=== PATIENT | female | born 1945 | race Caucasian/White ===

== ENCOUNTER 2019-02-09 17:28 | Inpatient (IN) ==
--- NOTE | 2019-02-09 18:14 | Emergency Department Note ---
Disposition Clinical Impression: Frequent falls UTI (urinary tract infection) Qualifiers: Urinary tract infection type: acute cystitis Hematuria presence: without hematuria Qualified Code(s): N30.00 - Acute cystitis without hematuria Disposition: Admitted As Inpatient Condition: Fair Referrals: Rudy Avila MD [Primary Care Provider] - Forms: ED Satisfaction Letter Time of Disposition: 20:44 General Adult HPI - General Chief complaint: ED Neuro Symptoms/Deficit Stated complaint: Fall Time Seen by Provider: 02/09/19 17:39 Source: patient, family Limitations: no limitations Nursing Notes Reviewed: Yes Vital Signs Reviewed: Yes - History of Present Illness HPI Narrative: 73-year-old female who presents the emergency department status post fall. The patient states she was seated and fell backwards injuring her head. Apparently there was blood. She states she had possible loss of consciousness that she had an episode where she murmurs waking up wondering what happened. She denies any prodromal symptoms including chest pain, shortness of breath, dizziness. She denies any current symptoms. She denies any chest pain, shortness of breath, headache, visual changes, numbness, tingling or weakness. Pain Scale: 7 - Related Data Previous Rx's Medication Instructions Recorded cephALEXin [Keflex] 500 mg PO TID 6 Days #18 capsule 02/08/19 Allergies Allergy/AdvReac Type Severity Reaction Status Date / Time Amoxicillin Allergy Hives Verified 02/08/19 19:49 Review of Systems: ROS per history of present illness, all other systems reviewed and negative or normal. All systems ED: reviewed and negative except as stated. Review of Systems: As Per HPI Past Medical History - Past Medical History Medical history: Reports: asthma, COPD, hyperlipidemia, hypertension - Social History Smoking Status: Former smoker Smokeless Tobacco Status: No Alcohol use: Reports: none Drug use: Reports: none Physical Exam General: Conversant. No apparent distress. Follow commands. Appears stated age. Neck: No JVD. Trachea midline. Neck supple. Eyes: PERRL. No scleral icterus. HENT: Normocephalic Moist mucus membranes. Patient has healing right temporal hematoma. There is no bony crepitus or obvious lacerations which are new. Cardiovascular: Regular rate and rhythm. Normal S1 and S2. No murmurs appreciated. Normal capillary refill. Extremities well perfused with 2+ distal pulses bilaterally. No edema. Pulmonary: Normal and equal breath sounds bilaterally, anteriorly and posteriorly. No wheezes, rales, or rhonchi. Not in respiratory distress. Speaks in full sentences. Abdomen: Soft, nondistended, and tontender. No bruits or masses. No guarding. Neuro: Alert and oriented to person, place, and time. CN II-XII tested and grossly intact. No hemineglect. Speech is fluid and without slurring. Sensory: Sensation intact to light touch in all extremities. Motor: Normal tone and bulk. No pronator drift. 5/5 strength in LUE 5/5 strength in RUE 5/5 strength in LLE 5/5 strength in RLE Skin: No rashes noted on visualized skin. Musculoskeletal: No bony abnormalities visualized. Moves all extremities. Psych: Normal mood. Pleasant. Makes appropriate eye contact. - General Limitations: no limitations General appearance: alert, in no apparent distress Course Vital Signs Temperature 98.1 F 02/09/19 17:29 Pulse Rate 86 02/09/19 17:29 Respiratory Rate 16 02/09/19 17:29 Blood Pressure 164/84 02/09/19 17:29 O2 Sat by Pulse Oximetry 99 02/09/19 17:29 Temperature 98.1 F 02/09/19 17:29 Pulse Rate 81 02/09/19 20:12 Respiratory Rate 14 02/09/19 20:12 Blood Pressure 169/79 02/09/19 20:12 O2 Sat by Pulse Oximetry 100 02/09/19 20:12 Oxygen Delivery Oxygen Delivery Room Air Medical Decision Making - [facility] Narrative Medical decision making narrative: 73-year-old female who presents the emergency department status post fall. This was unwitnessed and at home while she was alone. She is not on any blood thinners. She is alert and oriented on exam and her vital signs are stable. She has no neurologic deficits. She does have obvious old healing bruise on her right anabaptist and superficial scrapes on her forehead but no other obvious contusions at this time. The patient was also recently diagnosed with a urinary tract infection yesterday and was given 1 g Rocephin but has not followed up to get her prescription antibiotics as of yet. We did evaluate with CT head and cervical spine which shows no evidence of acute intracranial pathology or fractures. The patient did have laboratory evaluation less than 24 hours ago has had no significant changes since that time. Urine was grossly infected therefore repeated dosing of Rocephin today. Discussed with family patient has had multiple falls and lives alone and they did not therefore do not believe she is safe at home. She was offered admission yesterday but declined area and she is agreeable to this plan today. She will likely require placement. Discussed case with on-call hospitalist Dr. Boucher who agrees with plan for admission and accepts the patient to the inpatient service. Patient agrees with and understands course of treatment plan including plan for admission. All questions answered. - Medical Records Medical records reviewed: Yes I reviewed the patient's medical records. - Lab Data Lab results reviewed: Yes I reviewed the patient's lab results. - Radiology Data Radiology results reviewed: Yes I reviewed the patient's radiology results. Cervical Spine CT 02/09/19 18:10 IMPRESSION: No acute abnormality of the cervical spine. D/ / John Ca MD / John Ca MD Interpreting Provider: John Ca MD Head CT 02/09/19 18:10 IMPRESSION: No acute intracranial abnormality. D/ / Pillo Stark MD / Pillo Stark MD Interpreting Provider: Pillo Stark MD - EKG Data EKG #1 EKG attestation: Yes I reviewed and interpreted this EKG. EKG results narrative: Normal sinus rhythm rate of 82. Normal axis. No acute ischemic ST or T-wave abnormalities. Patient does show evidence of right bundle branch block which is unchanged from prior on 02/08/19.
[2019-02-09] MEDS ORDERED: cefTRIAXone 1,000 MG in Water for inj. (sterile) 10 ML IVP ONE (19:40)
--- NOTE | 2019-02-09 21:07 | Emergency Department Note ---
Disposition Clinical Impression: Frequent falls UTI (urinary tract infection) Qualifiers: Urinary tract infection type: acute cystitis Hematuria presence: without hematuria Qualified Code(s): N30.00 - Acute cystitis without hematuria Disposition: Admitted As Inpatient Condition: Fair Referrals: Rudy Avila MD [Primary Care Provider] - Forms: ED Satisfaction Letter Time of Disposition: 21:07 General Adult HPI - General Chief complaint: ED Neuro Symptoms/Deficit Stated complaint: Fall Time Seen by Provider: 02/09/19 17:39 Source: patient, family Limitations: no limitations - History of Present Illness Pain Scale: 7 - Related Data Previous Rx's Medication Instructions Recorded cephALEXin [Keflex] 500 mg PO TID 6 Days #18 capsule 02/08/19 Allergies Allergy/AdvReac Type Severity Reaction Status Date / Time Amoxicillin Allergy Hives Verified 02/08/19 19:49 Past Medical History - Past Medical History Medical history: Reports: asthma, COPD, hyperlipidemia, hypertension - Social History Smoking Status: Former smoker Smokeless Tobacco Status: No Alcohol use: Reports: none Drug use: Reports: none Physical Exam - General Limitations: no limitations General appearance: alert, in no apparent distress Course Vital Signs Temperature 98.1 F 02/09/19 17:29 Pulse Rate 86 02/09/19 17:29 Respiratory Rate 16 02/09/19 17:29 Blood Pressure 164/84 02/09/19 17:29 O2 Sat by Pulse Oximetry 99 02/09/19 17:29 Temperature 98.1 F 02/09/19 17:29 Pulse Rate 81 02/09/19 20:12 Respiratory Rate 14 02/09/19 20:12 Blood Pressure 169/79 02/09/19 20:12 O2 Sat by Pulse Oximetry 100 02/09/19 20:12 Oxygen Delivery Oxygen Delivery Room Air Attestation Statement - Attestation Attestation: I examined this patient and my medical decision-making was reviewed with the Resident Physician. I agree with the documented findings, disposition and treatment plan as described except to the extent set forth below. Patient exposing multiple falls. Lives at home by herself. Refused admission last night when she was evaluated for multiple falls and diagnosed with UTI. Was given a dose of Rocephin and sent home with antibiotics. Fell again after discharge. The son says that she is having increasing confusion. She seems somewhat confused on my evaluation, although she is oriented. I had a long conversation with the patient and her son. The son does not feel safe with her going home and neither do I. I was able to make the patient understand that it is possible that she will get better and improved to the point it is safe for her to go home with treatment of her UTI, but until that is the case she cannot be home by herself. Hospitalist has accepted for admission. I was present for the residency EKG interpretation.
[2019-02-09 21:12] LABS: Basophils % 0.3 %; Eosinophils % 0.6 %; Hematocrit 39.7 % (35.3-44.9); Hemoglobin 13.2 g/dL (11.5-15.4); Immature Granulocytes % 0.1 % (0-4); Lymphocytes # 1.5 K/mcL (0.6-4.6); Lymphocytes % 21.5 %; Mean Corpuscular HGB Conc 33.2 g/dL (31.6-35.5); Mean Corpuscular Hemoglobin 32.9 pg (28.0-33.3); Mean Platelet Volume 9.7 fL (9.4-12.4); Monocytes # 0.6 K/mcL (0.0-1.3); Neutrophils # 4.8 K/mcL (1.6-8.9); Platelet Count 293 K/mcL (140-400); Red Blood Count 4.01 M/mcL (3.82-4.97); Red Cell Distribution Width 11.9 % (11.5-14.5); Segmented Neutrophils % 69.5 %; White Blood Count 6.8 K/mcL (4.3-11.1)
[2019-02-09 21:31] LABS: BUN/Creatinine Ratio 11 (6-26); Blood Urea Nitrogen 7 mg/dL (8-23); Calcium 9.8 mg/dL (8.6-10.3); Carbon Dioxide 31 mEq/L (23-29); Chloride 101 mEq/L (98-107); Glucose 94 mg/dL (70-105); Osmolality,Calculated 292 (280-300); Potassium 3.2 mEq/L (3.5-5.1); Sodium 142 mEq/L (136-145); eGFR For African Americans > 60 (> 60); eGFR For Non-African Americans > 60 (> 60)
[2019-02-09] MEDS ORDERED: Naloxone 0.4 MG/ML INJ IVP PRN ×2 (22:41→22:55)
[2019-02-09] MEDS ORDERED: Acetaminophen 325 MG TABLET PO PRN (22:55)
[2019-02-09] MEDS: traMADol 50 MG TABLET PO PRN (23:57)
[2019-02-10] MEDS ORDERED: Potassium Chloride Elixir 20 MEQ/15 ML UDC PO ONE (04:03)
--- NOTE | 2019-02-10 04:15 | Internal Med History&Physical ---
Date of Encounter: 02/09/19 Time of Encounter: 22:00 Internal Medicine - H&P: HPI Chief complaint: Frequent falls History of present illness: Ms. Esquivel is a 73 year old female with a past medical history of asthma, COPD, hyperlipidemia and hypertension who presented to the ED after a fall. Patient apparently has had multiple falls. She was seen in the ED yesterday and evaluated for the same and additionally was found to have a urinary tract infection and was given a dose of Rocephin and discharged on antibiotics. Patient at time was offered admission but refused. After she went home, Fall was unwitnessed as patient currently lives at home alone. She apparently was seated and fell backwards injuring her head. Patient is not currently on blood thinners. Son who is in the ED also reports increasing confusion. Her son did not feel patient was safe to go home alone. On arrival patient was afebrile and hemodynamically stable. Laboratory workup was unremarkable including a normal white blood cell count. CT imaging of the head and spine showed no acute abnormality. Patient admitted for further observation and will likely need to have a discussion on placement moving forward. Past Med Surg Social Fam HX - Past Medical History Medical history: asthma, COPD, hyperlipidemia, hypertension Psychiatric history: depression - Past Surgical History Surgical History: cholecystectomy, orthopedic, other Additional surgical history: sinus surgery, toe repair - Social History Smoking Status: Former smoker Smokeless Tobacco Status: No Alcohol use: none Drug use: none - Family History Mother Hx Family Cancer: Yes Father Hx Family Medical Disorders: Yes (alcoholism) Internal Medicine - H&P: Meds Citalopram [CeleXA] 30 mg PO DAILY 02/09/19 [History] Simvastatin [Zocor] 20 mg PO QPM 02/09/19 [History] Albuterol Sulfate [Albuterol Inhaler] 2 puff PO Q4-6H PRN 02/10/19 [History] Budesonide/Formoterol 160/4.5 [Symbicort 160/4.5] 2 puff PO BID PRN 02/10/19 [History] Diclofenac Potassium 50 mg PO DAILY 02/10/19 [History] Losartan/Hydrochlorothiazide [Losartan-Hctz 50-12.5 mg Tab] 1 tab PO DAILY 02/10/19 [History] Verapamil ER (24 HR) [Calan SR] 240 mg PO QAM 02/10/19 [History] Allergy/AdvReac Type Severity Reaction Status Date / Time Amoxicillin Allergy Hives Verified 02/08/19 19:49 All Systems PM: A 10-system review of systems was performed and is negative for pertinent findings except as documented above in the HPI. - Constitutional Constitutional: no chills, no fever(s), no night sweats - EENT Eyes: no change in vision, no discharge, no pain, no photophobia Ears: no ear discharge, no ear pain, no tinnitus Nose, mouth and throat: no dysphagia, no nasal discharge, no neck pain, no sore throat - Cardiovascular Cardiovascular ROS IM: no chest pain, no diaphoresis, no dyspnea, no lightheadedness, no palpitations, no syncope - Respiratory Respiratory: no cough, no dyspnea, no wheezing, no excessive phlegm production - Gastrointestinal Gastrointestinal: no abdominal pain, no diarrhea, no hematemesis, no hematochezia, no melena, no nausea, no vomiting - Genitourinary Genitourinary: no change in urinary stream, no dysuria, no flank pain, no hematuria - Musculoskeletal Musculoskeletal ROS IM: no numbness, no tingling - Integumentary Integumentary IM: no rash, no unusual bruising - Neurological Neurological ROS: no confusion, no convulsions, no focal weakness, no numbness, no tingling, no tremor(s) - Hematologic/Lymphatic Hematologic/Lymphatic: no easy bruising - Constitutional Vitals: Temp Pulse Resp BP Pulse Ox 97.3 F L 80 16 167/91 95 02/10/19 03:48 02/10/19 03:48 02/10/19 03:48 02/10/19 03:48 02/10/19 03:48 Exam: General: Alert and oriented 3 Skin:Normal color, no rash, no lesions. HEENT:EOM, pupils equal, round and reactive. Cardiovascular:Normal S1 & S2, no rubs, murmurs or gallops. No JVD. Pulse regular. Lungs:Normal breath sounds, no wheezes or crackles. Abdomen:Soft, non-tender, no rigidity. Extremities:No deformity, no edema or tenderness, no joint swelling or clubbing. Neurological:Normal cognition and motor skills. Pulses:Carotid and radial pulses normal +2. Rest of the physical exam is non contributory Internal Med - H&P Results - Labs CBC & Chem 7: 02/09/19 20:52 02/10/19 13:06 Labs: Short CBC 02/09/19 Range/Units 20:52 WBC 6.8 (4.3-11.1) K/mcL Hgb 13.2 (11.5-15.4) g/dL Hct 39.7 (35.3-44.9) % Plt Count 293 (140-400) K/mcL Neutrophils # 4.8 (1.6-8.9) K/mcL BMP 02/09/19 20:52 Sodium 142 Potassium 3.2 L Chloride 101 Carbon Dioxide 31 H BUN 7 L Creatinine 0.65 Glucose 94 Calcium 9.8 - Impressions ITS Impressions Cervical Spine CT 02/09/19 18:10 IMPRESSION: No acute abnormality of the cervical spine. D/ / John Ca MD / John Ca MD Interpreting Provider: John Ca MD Head CT 02/09/19 18:10 IMPRESSION: No acute intracranial abnormality. D/ / Pillo Stark MD / Pillo Stark MD Interpreting Provider: Pillo Stark MD - Assessment and Plan (1) Frequent falls Current Visit: Yes Status: Acute Assessment and plan: Patient with history of frequent falls. She currently lives alone and family concerned that given her history of falls would likely need placement at another facility where she can be closely monitored. -Consult to PT and social welfare clerk. -Fall precautions (2) COPD (chronic obstructive pulmonary disease) Current Visit: Yes Status: Acute Assessment and plan: No evidence of an acute exacerbation. Resume home inhalers. Qualifiers: COPD type: unspecified COPD Qualified Code(s): J44.9 - Chronic obstructive pulmonary disease, unspecified (3) Hypertension Current Visit: Yes Status: Acute Assessment and plan: History of hypertension. Blood pressure mildly elevated. We will resume patie nt's home medications. And monitor Qualifiers: Hypertension type: essential hypertension Qualified Code(s): I10 - Essential (primary) hypertension (4) UTI (urinary tract infection) Current Visit: Yes Status: Acute Assessment and plan: Date to antibiotics. We will continue ceftriaxone. Qualifiers: Urinary tract infection type: acute cystitis Hematuria presence: without hematuria Qualified Code(s): N30.00 - Acute cystitis without hematuria (5) DVT prophylaxis Current Visit: Yes Status: Acute Assessment and plan: Intermittent compression devices - Time Spent With Patient Total time spent is greater than 50% in coordination of care (as documented) at patient's floor/unit and/or counseling patient:
--- NOTE | 2019-02-10 08:11 | Event Note ---
Date of Encounter: 02/10/19 Time of Encounter: 08:11 Patient was seen and examined by hospitalist services earlier this morning. Currently patient is alert and appropriate following simple commands. I did discuss treatment plan with the patient and son who is at bedside. Patient does verbalize that she is having right hip pain, has history of hip problems however no surgical intervention in the past. She did have a fall we will x-ray the right hip. PT OT has been consulted and appreciate recommendations she may need placement.
[2019-02-10] MEDS: Verapamil ER (24 HR) 240 MG TABLET.ER PO SCH (09:46)
[2019-02-10] MEDS: traMADol 50 MG TABLET PO PRN ×2 (09:46→17:36)
--- NOTE | 2019-02-10 14:11 | Electrocardiograph Report ---
[place] [id number] Test Date: 2019-02-09 Pat Name: Benny Esquivel Department: [id number] Room: 3B11 Gender: F Proposal Engineer: : [id number] Requested By: Pilar Caputo Order Number: [id number] Reading MD: Sher العراقي Measurements Intervals [place] Rate: 82 P: 52 TX: 170 QRS: -1 QRSD: 132 T: 2 QT: 389 QTc: 455 Interpretive Statements Sinus rhythm Right bundle branch block Electronically Signed On 02-10-2019 14:10:32 EDT by Sher العراقي
[2019-02-10 14:12] LABS: BUN/Creatinine Ratio 13 (6-26); Blood Urea Nitrogen 9 mg/dL (8-23); Calcium 9.3 mg/dL (8.6-10.3); Carbon Dioxide 27 mEq/L (23-29); Chloride 105 mEq/L (98-107); Glucose 111 mg/dL (70-105); Osmolality,Calculated 287 (280-300); Potassium 3.6 mEq/L (3.5-5.1); Sodium 139 mEq/L (136-145); eGFR For African Americans > 60 (> 60); eGFR For Non-African Americans > 60 (> 60)
[2019-02-10] MEDS: cefTRIAXone 1,000 MG in Water for inj. (sterile) 10 ML IVP SCH (17:35)
[2019-02-11] MEDS: traMADol 50 MG TABLET PO PRN ×2 (00:10→20:13)
--- NOTE | 2019-02-11 08:27 | Internal Med Progress Note ---
Hospitalist Progress Note - Encounter Date of Encounter: 02/11/19 Time of Encounter: 08:22 - Subjective Interval History: Patient was seen and examined at bedside I did review x-ray results of right hip she been complaining of right hip pain appears osteoarthritic. Patient has been very by PT and OT recommending inpatient swing rehabilitation patient verbalized understanding. - Exam Vitals: Temp Pulse Resp BP Pulse Ox 97.5 F L 76 16 157/81 96 02/11/19 06:55 02/11/19 06:55 02/11/19 06:55 02/11/19 06:55 02/11/19 06:55 Exam: General: Alert and oriented 3 Skin:Normal color, no rash, no lesions. HEENT:EOM, pupils equal, round and reactive. Cardiovascular:Normal S1 & S2, no rubs, murmurs or gallops. No JVD. Pulse regular. Lungs:Normal breath sounds, no wheezes or crackles. Abdomen:Soft, non-tender, no rigidity. Extremities:No deformity, no edema or tenderness, no joint swelling or clubbing. Neurological:Normal cognition and motor skills. Pulses:Carotid and radial pulses normal +2. Rest of the physical exam is non contributory - Assessment and Plan (1) UTI (urinary tract infection) Current Visit: Yes Status: Acute Assessment and Plan: Date to antibiotics. We will continue ceftriaxone. (2) Frequent falls Current Visit: Yes Status: Acute Assessment and Plan: Patient with history of frequent falls. She currently lives alone and family concerned that given her history of falls would likely need placement at another facility where she can be closely monitored. -Consult to PT and aids social worker. PT OT recommending rehabilitation swing -Fall precautions (3) COPD (chronic obstructive pulmonary disease) Current Visit: Yes Status: Acute Assessment and Plan: No evidence of an acute exacerbation. Resume home inhalers. Oxygen as needed (4) Hypertension Current Visit: Yes Status: Acute Assessment and Plan: History of hypertension. Continue home medications (5) DVT prophylaxis Current Visit: Yes Status: Acute Assessment and Plan: Intermittent compression devices - Time Spent with Patient Total time spent is greater than 50% in coordination of care (as documented) at patient's floor/unit and/or counseling patient: Internal Medicine: Result - Labs CBC & Chem 7: 02/09/19 20:52 02/10/19 13:06 Labs: BMP 02/10/19 13:06 Sodium 139 Potassium 3.6 Chloride 105 Carbon Dioxide 27 BUN 9 Creatinine 0.67 Glucose 111 H Calcium 9.3 - Impressions Impressions Hip X-Ray 02/10/19 10:10 IMPRESSION: 1. Severe osteoarthritis of the right hip. 2. No acute fracture or dislocation of the right hip evident. D/ / 02/10/2019 14:33:06 Vincent Yeager MD / evelio Interpreting Provider: Vincent Yeager MD Consult Discharge Plan - Plan Referrals: Rudy Avila MD [Primary Care Provider] - (Appointment has been requested.) (1) UTI (urinary tract infection) Qualifiers: Urinary tract infection type: acute cystitis Hematuria presence: without hematuria Qualified Code(s): N30.00 - Acute cystitis without hematuria (3) COPD (chronic obstructive pulmonary disease) Qualifiers: COPD type: unspecified COPD Qualified Code(s): J44.9 - Chronic obstructive pulmonary disease, unspecified (4) Hypertension Qualifiers: Hypertension type: essential hypertension Qualified Code(s): I10 - Essential (primary) hypertension
[2019-02-11] MEDS: Verapamil ER (24 HR) 240 MG TABLET.ER PO SCH (09:18)
[2019-02-11] MEDS: cefTRIAXone 1,000 MG in Water for inj. (sterile) 10 ML IVP SCH (17:39)
[2019-02-12] MEDS ORDERED: Budesonide/Formoterol 160/4.5 1 PUFF INH IH PRN (07:44)
--- NOTE | 2019-02-12 07:52 | Internal Med Progress Note ---
Hospitalist Progress Note - Encounter Date of Encounter: 02/12/19 Time of Encounter: 07:47 - Subjective Interval History: Patient was seen and examined at bedside- no changes overnight- Denies any pain or discomfort Discussed plan - awaiting social research assistant recommendations for rehab placment - Exam Vitals: Temp Pulse Resp BP Pulse Ox 98.0 F 71 16 164/84 94 02/12/19 07:33 02/12/19 07:33 02/12/19 07:33 02/12/19 07:33 02/12/19 07:33 Exam: General: Alert and oriented 3 Skin:Normal color, no rash, no lesions. HEENT:EOM, pupils equal, round and reactive. Cardiovascular:Normal S1 & S2, no rubs, murmurs or gallops. No JVD. Pulse regular. Lungs:Normal breath sounds, no wheezes or crackles. Abdomen:Soft, non-tender, no rigidity. Extremities:No deformity, no edema or tenderness, no joint swelling or clubbing. Neurological:Normal cognition and motor skills. Pulses:Carotid and radial pulses normal +2. Rest of the physical exam is non contributory - Assessment and Plan (1) UTI (urinary tract infection) Current Visit: Yes Status: Acute Assessment and Plan: Patient has had 3 days treatments with Rocephin and she has no urinary symptoms and no white count or fever we will discontinue Rocephin this time (2) Frequent falls Current Visit: Yes Status: Acute Assessment and Plan: Patient with history of frequent falls. She currently lives alone and family concerned that given her history of falls would likely need placement at another facility where she can be closely monitored. -Consult to PT and social research assistant. PT OT recommending rehabilitation swing- social research assistant consulted and working on placement -Fall precautions (3) COPD (chronic obstructive pulmonary disease) Current Visit: Yes Status: Acute Assessment and Plan: No evidence of an acute exacerbation. Resume home inhalers. Oxygen as needed (4) Hypertension Current Visit: Yes Status: Acute Assessment and Plan: History of hypertension. Continue home medications (5) DVT prophylaxis Current Visit: Yes Status: Acute Assessment and Plan: Intermittent compression devices - Time Spent with Patient Total time spent is greater than 50% in coordination of care (as documented) at patient's floor/unit and/or counseling patient: Internal Medicine: Result - Labs CBC & Chem 7: 02/09/19 20:52 02/10/19 13:06 - Impressions Impressions Hip X-Ray 02/10/19 10:10 IMPRESSION: 1. Severe osteoarthritis of the right hip. 2. No acute fracture or dislocation of the right hip evident. D/ / 02/10/2019 14:33:06 Vincent Yeager MD / evelio Interpreting Provider: Vincent Yeager MD Consult Discharge Plan - Plan Referrals: Rudy Avila MD [Primary Care Provider] - (Appointment has been requested.) (1) UTI (urinary tract infection) Qualifiers: Urinary tract infection type: acute cystitis Hematuria presence: without hematuria Qualified Code(s): N30.00 - Acute cystitis without hematuria (3) COPD (chronic obstructive pulmonary disease) Qualifiers: COPD type: unspecified COPD Qualified Code(s): J44.9 - Chronic obstructive pulmonary disease, unspecified (4) Hypertension Qualifiers: Hypertension type: essential hypertension Qualified Code(s): I10 - Essential (primary) hypertension
[2019-02-12] MEDS ORDERED: DICLOFENAC POTASSIUM 50 MG PO SCH (09:00)
[2019-02-12] MEDS: Losartan/HCTZ 50-12.5 TABLET PO SCH (09:23)
[2019-02-12] MEDS: Verapamil ER (24 HR) 240 MG TABLET.ER PO SCH (09:25)
[2019-02-12] MEDS: traMADol 50 MG TABLET PO PRN (10:14)
[2019-02-12] MEDS: cefTRIAXone 1,000 MG in Water for inj. (sterile) 10 ML IVP SCH (19:22)
[2019-02-13 06:16] LABS: Basophils % 0.3 %; Eosinophils # 0.1 K/mcL (0.0-0.6); Eosinophils % 1.2 %; Hematocrit 42.6 % (35.3-44.9); Hemoglobin 14.3 g/dL (11.5-15.4); Immature Granulocytes % 0.3 % (0-4); Lymphocytes # 1.4 K/mcL (0.6-4.6); Lymphocytes % 20.8 %; Mean Corpuscular HGB Conc 33.6 g/dL (31.6-35.5); Mean Corpuscular Hemoglobin 32.8 pg (28.0-33.3); Mean Corpuscular Volume 97.7 fL (83.0-100.0); Mean Platelet Volume 9.5 fL (9.4-12.4); Monocytes # 0.6 K/mcL (0.0-1.3); Monocytes % 8.2 %; Neutrophils # 4.8 K/mcL (1.6-8.9); Platelet Count 318 K/mcL (140-400); Red Blood Count 4.36 M/mcL (3.82-4.97); Red Cell Distribution Width 11.7 % (11.5-14.5); Segmented Neutrophils % 69.2 %; White Blood Count 6.9 K/mcL (4.3-11.1)
[2019-02-13 06:34] LABS: BUN/Creatinine Ratio 17 (6-26); Blood Urea Nitrogen 10 mg/dL (8-23); Calcium 9.6 mg/dL (8.6-10.3); Carbon Dioxide 30 mEq/L (23-29); Chloride 101 mEq/L (98-107); Glucose 100 mg/dL (70-105); Osmolality,Calculated 289 (280-300); Potassium 3.5 mEq/L (3.5-5.1); Sodium 140 mEq/L (136-145); eGFR For African Americans > 60 (> 60); eGFR For Non-African Americans > 60 (> 60)
[2019-02-13 07:09] VITALS: BP 155/82
--- NOTE | 2019-02-13 08:24 | Internal Med Progress Note ---
Hospitalist Progress Note - Encounter Date of Encounter: 02/13/19 Time of Encounter: 08:21 - Subjective Interval History: Patient was seen and examined at bedside - Exam Vitals: Temp Pulse Resp BP Pulse Ox 98.3 F 83 16 155/82 95 02/13/19 07:08 02/13/19 07:08 02/13/19 07:08 02/13/19 07:08 02/13/19 07:08 - Assessment and Plan (1) UTI (urinary tract infection) Current Visit: Yes Status: Acute (2) Frequent falls Current Visit: Yes Status: Acute (3) COPD (chronic obstructive pulmonary disease) Current Visit: Yes Status: Acute (4) Hypertension Current Visit: Yes Status: Acute (5) DVT prophylaxis Current Visit: Yes Status: Acute - Time Spent with Patient Total time spent is greater than 50% in coordination of care (as documented) at patient's floor/unit and/or counseling patient: Internal Medicine: Result - Labs CBC & Chem 7: 02/13/19 05:51 02/13/19 05:51 Labs: Short CBC 02/13/19 Range/Units 05:51 WBC 6.9 (4.3-11.1) K/mcL Hgb 14.3 (11.5-15.4) g/dL Hct 42.6 (35.3-44.9) % Plt Count 318 (140-400) K/mcL Neutrophils # 4.8 (1.6-8.9) K/mcL BMP 02/13/19 05:51 Sodium 140 Potassium 3.5 Chloride 101 Carbon Dioxide 30 H BUN 10 Creatinine 0.58 L Glucose 100 Calcium 9.6 Consult Discharge Plan - Plan Referrals: Rudy Avila MD [Primary Care Provider] - (Appointment has been requested.) (1) UTI (urinary tract infection) Qualifiers: Urinary tract infection type: acute cystitis Hematuria presence: without hematuria Qualified Code(s): N30.00 - Acute cystitis without hematuria (3) COPD (chronic obstructive pulmonary disease) Qualifiers: COPD type: unspecified COPD Qualified Code(s): J44.9 - Chronic obstructive pulmonary disease, unspecified (4) Hypertension Qualifiers: Hypertension type: essential hypertension Qualified Code(s): I10 - Essential (primary) hypertension
[2019-02-13] MEDS: Losartan/HCTZ 50-12.5 TABLET PO SCH (08:25)
[2019-02-13] MEDS: Verapamil ER (24 HR) 240 MG TABLET.ER PO SCH (08:25)
--- NOTE | 2019-02-13 10:29 | Consult Note ---
Date of Encounter: 02/13/19 Time of Encounter: 09:45 Assessment & Recommendation (1) Neurocognitive disorder Current visit: Yes Status: Acute Assessment & Recommendation: Patient seemed to have problems with memory and decision making. At this point she is not saying that she is absolutely opposed to going to a senior living facility however if she does refused to sign in voluntarily for treatment it at this point does not seem she has capacity to make that decision she does not fully appreciate the risks of going back to her home. She is currently on an antidepressant, Celexa which is a good choice for those with neurocognitive disorder and behavioral deficits as well as depression. The issue with this medication is some cardiac issues in the elderly so the risks and benefits should be weighed. Consideration could be given to Aricept so this can be deferred to her outpatient provider. History of Present Illness Requesting Physician: Lala Boucher MD Reason for consult: Capacity assessment History of present illness: Ms. Esquivel is a 73 year old female with a past medical history of asthma, COPD, hyperlipidemia and hypertension who presented to the ED after a fall. Patient apparently has had multiple falls. She was seen in the ED today prior for admission and evaluated for the same and additionally was found to have a urinary tract infection and was given a dose of Rocephin and discharged on antibiotics. Patient at time was offered admission but refused. After she went home, Fall was unwitnessed as patient currently lives at home alone. She apparently was seated and fell backwards injuring her head. Patient is not currently on blood thinners. Son who is in the ED also reports increasing co nfusion. Her son did not feel patient was safe to go home alone. On arrival patient was afebrile and hemodynamically stable. Laboratory workup was unremarkable including a normal white blood cell count. CT imaging of the head and spine showed no acute abnormality. Patient admitted for further observation and will likely need to have a discussion on placement moving forward. Psychiatry was consulted for capacity assessment. Patient was friendly but somewhat confused when I talked with her. She is good at covering her confusion and memory problems through jokes and related comments. For instance when I asked what season it was she said "well it feels cold inhere to me". She was able to eventually guessed that it was spring. When I asked her the year she said O9. She was similarly dismissive when I asked about placement at a senior living facility. Stating "I do not know they will do what they wanted to. They do not tell me anything." She does express that she prefers to go home but when I try to ask her what the potential risks of going home and living on supervised R she states things such as "well I could follow here to". When I talked to her about cooking and stove fire she states "oh my brother would blame me no matter what happens". When I ask if her brother also lives with her she became confused and spoke about not being sure if he is currently living with her or not. She has a lot of transition in overall issues surrounding her relationship with her son and feeling as though her family no longer needs her. She was not aware she was arty on an anti depressant.. She reported some sadness decreased interest. She denied suicidal or homicidal thoughts ideations or plans. She is future oriented. She said her preference is to go back to her home but she is not adamantly opposed to nursing facility at this time stating "well build just do what they want to do anyway". CC: Lala Boucher MD Past Med Surg Social Fam HX - Past Medical History Medical history: asthma, COPD, hyperlipidemia, hypertension - Past Psychiatric History Psychiatric history: Reports: depression Past psychiatric history details: She denies prior psychiatric history. She denies prior suicide attempts, inpatient treatment, or outpatient mental health services. She is not aware that she is arty on Celexa which is an antidepressant. Family psychiatric history: No Family History of Suicide: None - Past Surgical History Surgical History: cholecystectomy, orthopedic, other - Social History Smoking Status: Former smoker Smokeless Tobacco Status: No Alcohol use: none Drug use: none - Family History Mother Hx Family Cancer: Yes Father Hx Family Medical Disorders: Yes (alcoholism) Medications & Allergies Citalopram [CeleXA] 30 mg PO DAILY 02/09/19 [History] Simvastatin [Zocor] 20 mg PO QPM 02/09/19 [History] Albuterol Sulfate [Albuterol Inhaler] 2 puff PO Q4-6H PRN 02/10/19 [History] Budesonide/Formoterol 160/4.5 [Symbicort 160/4.5] 2 puff PO BID PRN 02/10/19 [History] Diclofenac Potassium 50 mg PO DAILY 02/10/19 [History] Losartan/Hydrochlorothiazide [Losartan-Hctz 50-12.5 mg Tab] 1 tab PO DAILY 02/10/19 [History] Verapamil ER (24 HR) [Calan SR] 240 mg PO QAM 02/10/19 [History] Allergy/AdvReac Type Severity Reaction Status Date / Time Amoxicillin Allergy Hives Verified 02/08/19 19:49 Review of Systems Constitutional: Reports: weakness Eyes: Denies: eye pain Ears, Nose, Throat: Denies: ear pain Cardiovascular: Denies: chest pain Respiratory: Denies: cough Gastrointestinal: Denies: abdominal pain Genitourinary female: Denies: urgency Musculoskeletal: Reports: joint pain, myalgia Integumentary: Reports: other (Ecchymoses on forehead) Neurological: Reports: weakness, confusion, memory loss. Denies: headache Psychiatric: Reports: depression. Denies: suicidal ideation, homicidal ideation, auditory hallucinations, visual hallucinations Endocrine: Reports: fatigue Hematologic/Lymphatic: Reports: easy bruising. Denies: easy bleeding Allergic/Immunologic: Reports: facial swelling Psychiatry Exam - Constitutional Vitals: Temp Pulse Resp BP Pulse Ox 98.3 F 83 16 155/82 95 02/13/19 07:08 02/13/19 07:08 02/13/19 07:08 02/13/19 07:08 02/13/19 07:08 General appearance: age & developmentally appropriate - Musculoskeletal Gait: other (In bed) Station: stooped Strength & Tone: mild weakness - Psychiatric Patient Orientation: Yes Person, Yes Place Level of alertness: Alert Behavior: guarded Psychomotor activity: Slowed Eye Contact: Maintains Eye Contact Mood Description: Depressed Patient description of mood: Down Affect description: dysphoric Speech Volume: Soft/Quiet Speech pattern: normal rate Language & Vocabulary: consistent with education Thought Process: Slowed Thinking Thought Content: No Suicidal ideation, No Homicidal ideation Perceptual Disturbances: No Auditory hallucinations, No Visual hallucinations Attention Span Ability: Unable to Focus, Unable to Sustain Attention Memory Description: Immediate Impaired, Recent Impaired, Remote Impaired Patient Reliability: Questionable Historian Fund of knowledge: Yes average Intelligence Estimate: Average Judgment: Limited Insight: Minimal Results - Labs Labs: Laboratory Last Values WBC 6.9 K/mcL (4.3-11.1) 02/13/19 05:51 RBC 4.36 M/mcL (3.82-4.97) 02/13/19 05:51 Hgb 14.3 g/dL (11.5-15.4) 02/13/19 05:51 Hct 42.6 % (35.3-44.9) 02/13/19 05:51 MCV 97.7 fL (83.0-100.0) 02/13/19 05:51 MCH 32.8 pg (28.0-33.3) 02/13/19 05:51 MCHC 33.6 g/dL (31.6-35.5) 02/13/19 05:51 RDW 11.7 % (11.5-14.5) 02/13/19 05:51 Plt Count 318 K/mcL (140-400) 02/13/19 05:51 MPV 9.5 fL (9.4-12.4) 02/13/19 05:51 Immature Gran % 0.3 % (0-4) 02/13/19 05:51 Seg Neutrophils % 69.2 % 02/13/19 05:51 20.8 % 02/13/19 05:51 8.2 % 02/13/19 05:51 1.2 % 02/13/19 05:51 0.3 % 02/13/19 05:51 4.8 K/mcL (1.6-8.9) 02/13/19 05:51 1.4 K/mcL (0.6-4.6) 02/13/19 05:51 0.6 K/mcL (0.0-1.3) 02/13/19 05:51 0.1 K/mcL (0.0-0.6) 02/13/19 05:51 0.0 K/mcL (0.0-0.2) 02/13/19 05:51 Sodium 140 mEq/L (136-145) 02/13/19 05:51 Potassium 3.5 mEq/L (3.5-5.1) 02/13/19 05:51 Chloride 101 mEq/L (98-107) 02/13/19 05:51 Carbon Dioxide 30 mEq/L (23-29) H 02/13/19 05:51 BUN 10 mg/dL (8-23) 02/13/19 05:51 0.58 mg/dL (0.60-1.20) L 02/13/19 05:51 Est GFR ( Amer) > 60 (> 60) 02/13/19 05:51 Est GFR (Non-Af Amer) > 60 (> 60) 02/13/19 05:51 17 (6-26) 02/13/19 05:51 Glucose 100 mg/dL (70-105) 02/13/19 05:51 289 (280-300) 02/13/19 05:51 Calcium 9.6 mg/dL (8.6-10.3) 02/13/19 05:51 Consult Discharge Plan - Plan Referrals: Rudy Avila MD [Primary Care Provider] - (Appointment has been requested.)
--- NOTE | 2019-02-13 10:59 | Discharge Summary ---
- NOTES TO OUTPATIENT PROVIDER Notes to Outpatient Provider: Presented after frequent falls at home she did have a urinary tract infection which was treated CT of head and spine with no acute abnormalities-family concerned about worsening confusion and memory. She was evaluated by PT and OT as well as psychiatry- may consider aricept -she will be discharged to [facility] for rehabilitation Date of Encounter: 02/13/19 Time of Encounter: 10:57 - Discharge Diagnosis (1) UTI (urinary tract infection) Priority: Secondary Status: Acute Qualifiers: Urinary tract infection type: acute cystitis Hematuria presence: without hematuria Qualified Code(s): N30.00 - Acute cystitis without hematuria (2) Frequent falls Priority: Primary Status: Acute (3) COPD (chronic obstructive pulmonary disease) Priority: Secondary Status: Acute Qualifiers: COPD type: unspecified COPD Qualified Code(s): J44.9 - Chronic obstructive pulmonary disease, unspecified (4) Hypertension Priority: Secondary Status: Acute Qualifiers: Hypertension type: essential hypertension Qualified Code(s): I10 - Essential (primary) hypertension Hospital course: Ms. Esquivel is a 73 year old female astragal history of asthma COPD hyperlipidemia hypertension presented to [facility] ED after experiencing a fall. According to family patient does live alone and has been experiencing frequent falls at home. She was seen in the ED prior to this admission and was found to have a urinary tract infection and was discharged on antibiotics. SCDs she was discharged home she had a fall where she was seated and fell backwards injuring her head. She was brought back to the emergency department CT of head and spine with no acute abnormalities lab work was unremarkable she was admitted and continued IV Rocephin for UTI for 3 days. She did display intermittent confusion which the son states has been going on for some time. Some was confused about patient's capability of making decisions due to ongoing confusion. Psychiatry was consulted-she does not seem to have the capacity to make decisions and does not fully appreciate risk of going back to her home. Patient was evaluated by PT and OT recommending inpatient rehabilitation which patient is agreeable. She has been accepted at [facility] she will be discharged and will follow-up with primary care provider as outpatient. Currently she is hemodynamically stable and she is ready for discharge. - Time Spent with Patient Total time spent providing and/or coordinating discharge services: - Discharge Medications Prescriptions: New Acetaminophen [Tylenol] 650 mg PO Q6H PRN tablet PRN Reason: Mild Pain/Fever Continued Citalopram [CeleXA] 30 mg PO DAILY Simvastatin [Zocor] 20 mg PO QPM Albuterol Sulfate [Albuterol Inhaler] 2 puff PO Q4-6H PRN PRN Reason: Shortness Of Breath Budesonide/Formoterol 160/4.5 [Symbicort 160/4.5] 2 puff PO BID PRN PRN Reason: Shortness Of Breath Diclofenac Potassium 50 mg PO DAILY Losartan/Hydrochlorothiazide [Losartan-Hctz 50-12.5 mg Tab] 1 tab PO DAILY Verapamil ER (24 HR) [Calan SR] 240 mg PO QAM Home Medications: Citalopram [CeleXA] 30 mg PO DAILY 02/09/19 [History] Simvastatin [Zocor] 20 mg PO QPM 02/09/19 [History] Albuterol Sulfate [Albuterol Inhaler] 2 puff PO Q4-6H PRN 02/10/19 [History] Budesonide/Formoterol 160/4.5 [Symbicort 160/4.5] 2 puff PO BID PRN 02/10/19 [History] Diclofenac Potassium 50 mg PO DAILY 02/10/19 [History] Losartan/Hydrochlorothiazide [Losartan-Hctz 50-12.5 mg Tab] 1 tab PO DAILY 02/10/19 [History] Verapamil ER (24 HR) [Calan SR] 240 mg PO QAM 02/10/19 [History] Acetaminophen [Tylenol] 650 mg PO Q6H PRN tablet 02/13/19 [Rx] Allergies/Adverse Reactions: Allergy/AdvReac Type Severity Reaction Status Date / Time Amoxicillin Allergy Hives Verified 02/08/19 19:49 Date of admission: 02/10/19 14:17 Primary care physician: Rudy Avila MD Consults: 02/10/19 04:04 Consult to Car Repairer Apprentice [CONS] Routine Reason for SW Consult: Recurrent history of falls. Patient requiring placement. 02/10/19 04:17 Consult to Physical Therapy [CONS] Routine Comment: Evaluate, develop and implement POC Reason for Consult: Patient with history of recurrent falls. Does patient have active BEDREST order?: No Is patient medically & hemodynamically stable?: Yes 02/12/19 07:50 Consult to Occupational Therapy [CONS] Routine Comment: Evaluate, develop and implement POC Reason for Consult: weaqkness, falls, placement to SNF. Needs insurance auth Does patient have active BEDREST order?: No Is patient medically & hemodynamically stable?: Yes 02/12/19 13:51 Consult to Psychiatry [CONS] Routine Consulting Provider: Psychiat[facility] Reason consult: Capacity assessment Discharging clinician: Marta Freeman Anticipated date of discharge: 02/13/19 - Constitutional Vitals: Temp Pulse Resp BP Pulse Ox 98.3 F 83 16 155/82 95 02/13/19 07:08 02/13/19 07:08 02/13/19 07:08 02/13/19 07:08 02/13/19 07:08 General appearance: Present: cooperative, A&O X 1 Exam: . - Head Head exam: Present: normocephalic Additional comments: Old bruising surrounding right eye - Eye Eye exam: Present: PERRL, conjuntiva pink, sclera anicteric Pupils: Present: PERRL - Neck Neck exam general surgery: Present: supple, trachea midline. Absent: lymphadenopathy - Respiratory Respiratory exam: Present: CTAB. Absent: accessory muscle use, rales, rhonchi, wheezes - Cardiovascular Cardiovascular exam: Present: RRR, +S1, +S2. Absent: diastolic murmur, gallop, rubs, systolic murmur - GI/Abdominal GI/Abdominal exam: Present: normal bowel sounds, soft, no peritoneal signs. Absent: distended, tenderness - Extremities Exam Extremities exam: Present: warm, radial pulses palpable and symmetrical. Absent: calf tenderness, cyanotic, pedal edema - Neurological Exam Neurological exam: Present: CN II-XII intact, oriented X3, no focal deficits. Absent: pronater drift, facial droop, speech deficit - Skin Skin exam: Present: dry, intact - Patient Status Disposition: Transfer SNF Condition: Fair Functional capacity at discharge: uses cane/walker Overall status at discharge: patient is back to baseline - Discharge Instructions Follow Up With: Rudy Avila MD [Primary Care Provider] - (Appointment has been requested.) - Diet and Activity Activity: increase activity as tolerated Diet: advance to your usual diet
[2019-02-13] MEDS: traMADol 50 MG TABLET PO PRN (13:58)
== END 2019-02-13 15:48 | DRG 690 ==
LOC: 3BNU 17:28 → EMEROOARM 17:28 → 3BNU 22:10
PROVIDERS: ADMIT Internal Medicine; ATTEND Internal Medicine

== ENCOUNTER 2019-03-26 15:44 | Observation (INO) ==
[2019-03-26] MEDS ORDERED: 0.9 % Sodium Chloride 1,000 ML IVC ONE (17:16)
[2019-03-26 17:31] LABS: Basophils % 0.3 %; Eosinophils # 0.1 K/mcL (0.0-0.6); Eosinophils % 0.6 %; Hematocrit 35.8 % (35.3-44.9); Hemoglobin 11.9 g/dL (11.5-15.4); Immature Granulocytes % 0.6 % (0-4); Lymphocytes # 1.4 K/mcL (0.6-4.6); Lymphocytes % 12.8 %; Mean Corpuscular HGB Conc 33.2 g/dL (31.6-35.5); Mean Corpuscular Hemoglobin 32.8 pg (28.0-33.3); Mean Corpuscular Volume 98.6 fL (83.0-100.0); Mean Platelet Volume 9.3 fL (9.4-12.4); Monocytes % 9.9 %; Platelet Count 271 K/mcL (140-400); Red Blood Count 3.63 M/mcL (3.82-4.97); Red Cell Distribution Width 11.9 % (11.5-14.5); Segmented Neutrophils % 75.8 %; White Blood Count 10.5 K/mcL (4.3-11.1)
[2019-03-26 17:45] LABS: INR 1.2; Prothrombin Time 14.1 Seconds (9.4-12.1)
[2019-03-26 17:48] LABS: Activated Partial Thrombo Time 27.4 Seconds (26.0-36.0)
[2019-03-26 17:50] LABS: Alanine Aminotransferase 13 Units/L (7-52); Albumin 4.1 g/dL (3.5-5.7); Alkaline Phosphatase 62 Units/L (34-104); Aspartate Amino Transferase 26 Units/L (13-39); BUN/Creatinine Ratio 33 (6-26); Bilirubin,Direct 0.1 mg/dL (0.0-0.2); Bilirubin,Indirect 0.4 mg/dL (0.0-1.2); Bilirubin,Total 0.5 mg/dL (0.3-1.0); Blood Urea Nitrogen 18 mg/dL (8-23); Calcium 9.5 mg/dL (8.6-10.3); Carbon Dioxide 28 mEq/L (23-29); Chloride 100 mEq/L (98-107); Ethanol < 10 mg/dL (Less than 10); Globulin 2.1 g/dL (2.4-3.5); Glucose 102 mg/dL (70-105); Osmolality,Calculated 288 (280-300); Potassium 3.1 mEq/L (3.5-5.1); Sodium 138 mEq/L (136-145); Total Protein 6.2 g/dL (6.4-8.9); Troponin I < 0.03 ng/mL (< 0.04); eGFR For African Americans > 60 (> 60); eGFR For Non-African Americans > 60 (> 60)
[2019-03-26 21:08] LABS: Bilirubin,Urine Small (Negative); Blood,Urine Negative (Negative); Clarity,Urine Clear (Clear); Color,Urine Yellow (Yellow); Glucose,Urine (UA) Normal (Normal); Ketones,Urine 80 mg/dL (Negative); Leukocyte Esterase,Urine Small (Negative); Nitrite,Urine Negative (Negative); PH,Urine 6.5 pH Units (5.0-8.0); Protein,Urine Trace mg/dL (Neg-Trace); Specific Gravity,Urine 1.024 (1.010-1.025)
[2019-03-26 21:11] LABS: Bacteria,Urine None Seen per hpf (None-Few); Hyaline Casts,Urine None Seen per lpf (None-Few); Squamous Epithelial Cell,Urine Many per lpf (None-Few); WBC,Urine 0-3 per hpf (0-3)
[2019-03-26 21:18] LABS: Amphetamine Screen,Urine Negative ng/mL (Cutoff=1000); Barbiturate Screen,Urine Negative ng/mL (Cutoff=200); Benzodiazepines Screen,Urine Negative ng/mL (Cutoff=200); Cannabinoid Screen,Urine Negative ng/mL (Cutoff = 50); Cocaine Screen,Urine Negative ng/mL (Cutoff= 300); Opiate Screen,Urine Negative ng/mL (Cutoff=300); Phencyclidine Screen,Urine Negative ng/mL (Cutoff=25)
[2019-03-26] MEDS ORDERED: cephALEXin 250 MG CAPSULE PO ONE (23:32)
[2019-03-27] MEDS ORDERED: Ketorolac 15 MG/ML VIAL IVP ONE
[2019-03-27] MEDS ORDERED: levoFLOXacin 500 MG/100 ML 500 MG/100 ML BAG IVPB SCH
[2019-03-27] MEDS ORDERED: Naloxone 0.4 MG/ML INJ IVP PRN (03:19)
[2019-03-27] MEDS ORDERED: Acetaminophen 325 MG TABLET PO PRN (03:22)
[2019-03-27] MEDS ORDERED: 0.9 % Sodium Chloride 1,000 ML IVC SCH (03:30)
[2019-03-27] MEDS: Budesonide/Formoterol 160/4.5 1 PUFF INH IH SCH ×3 (03:56→21:04)
[2019-03-27 05:23] LABS: BUN/Creatinine Ratio 29 (6-26); Blood Urea Nitrogen 12 mg/dL (8-23); Calcium 8.6 mg/dL (8.6-10.3); Carbon Dioxide 24 mEq/L (23-29); Chloride 105 mEq/L (98-107); Glucose 84 mg/dL (70-105); Osmolality,Calculated 285 (280-300); Potassium 3.3 mEq/L (3.5-5.1); Sodium 138 mEq/L (136-145); eGFR For African Americans > 60 (> 60); eGFR For Non-African Americans > 60 (> 60)
[2019-03-27 05:37] LABS: Hematocrit 35.5 % (35.3-44.9); Hemoglobin 11.6 g/dL (11.5-15.4); Mean Corpuscular HGB Conc 32.7 g/dL (31.6-35.5); Mean Corpuscular Volume 101.1 fL (83.0-100.0); Mean Platelet Volume 9.7 fL (9.4-12.4); Platelet Count 276 K/mcL (140-400); Red Blood Count 3.51 M/mcL (3.82-4.97); Red Cell Distribution Width 11.9 % (11.5-14.5); White Blood Count 8.2 K/mcL (4.3-11.1)
[2019-03-27] MEDS: Diclofenac Sodium (DR) 50 MG TABLET.DR PO SCH (10:35)
[2019-03-27] MEDS: Losartan/HCTZ 50-12.5 TABLET PO SCH (10:35)
[2019-03-27] MEDS: Verapamil ER (24 HR) 240 MG TABLET.ER PO SCH (10:35)
[2019-03-28] MEDS ORDERED: levoFLOXacin 500 MG/100 ML 500 MG/100 ML BAG IVPB SCH (06:00)
[2019-03-28] MEDS: Budesonide/Formoterol 160/4.5 1 PUFF INH IH SCH ×2 (07:46→20:29)
[2019-03-28] MEDS: Diclofenac Sodium (DR) 50 MG TABLET.DR PO SCH (08:38)
[2019-03-28] MEDS: Losartan/HCTZ 50-12.5 TABLET PO SCH (08:38)
[2019-03-28] MEDS: cefTRIAXone 1,000 MG in Water for inj. (sterile) 10 ML IVP SCH (08:38)
[2019-03-28] MEDS: Verapamil ER (24 HR) 240 MG TABLET.ER PO SCH (08:38)
[2019-03-29] MEDS: Verapamil ER (24 HR) 240 MG TABLET.ER PO SCH (07:51)
[2019-03-29] MEDS: Losartan/HCTZ 50-12.5 TABLET PO SCH (07:52)
[2019-03-29] MEDS: cefTRIAXone 1,000 MG in Water for inj. (sterile) 10 ML IVP SCH (07:52)
[2019-03-29] MEDS: Diclofenac Sodium (DR) 50 MG TABLET.DR PO SCH (07:52)
[2019-03-29] MEDS: Budesonide/Formoterol 160/4.5 1 PUFF INH IH SCH ×2 (10:28→20:37)
[2019-03-30 06:14] LABS: BUN/Creatinine Ratio 18 (6-26); Blood Urea Nitrogen 10 mg/dL (8-23); Calcium 9.7 mg/dL (8.6-10.3); Carbon Dioxide 29 mEq/L (23-29); Chloride 98 mEq/L (98-107); Glucose 104 mg/dL (70-105); Osmolality,Calculated 281 (280-300); Potassium 3.3 mEq/L (3.5-5.1); Sodium 136 mEq/L (136-145); eGFR For African Americans > 60 (> 60); eGFR For Non-African Americans > 60 (> 60)
[2019-03-30 07:11] VITALS: BP 152/101
[2019-03-30] MEDS: Budesonide/Formoterol 160/4.5 1 PUFF INH IH SCH (07:40)
[2019-03-30] MEDS ORDERED: hydroCHLOROthiazide 25 MG TABLET PO SCH (09:00)
[2019-03-30] MEDS: Verapamil ER (24 HR) 240 MG TABLET.ER PO SCH (09:15)
[2019-03-30] MEDS: Diclofenac Sodium (DR) 50 MG TABLET.DR PO SCH (09:15)
== END 2019-03-30 16:38 ==
LOC: 3BNU 15:44 → EMEROOARM 15:44 → SUATTDRO 03-27 02:20 → 3BNU 03-27 03:15
PROVIDERS: ADMIT Internal Medicine; ATTEND Family Medicine